=== PATIENT | male | born 1995 | race African-American/Black ===

== ENCOUNTER 2017-01-15 22:18 | Emergency (ER) | payer MEDICAID ==
[2017-01-16] MEDS ORDERED: LIDOCAINE 2% JELLY 30 ML TUBE TOP ONE (00:41)
--- NOTE | 2017-01-16 00:43 | ER Document Report ---
ED General - General Chief Complaint: Hemorrhoids Stated Complaint: POSSIBLE HEMOROIDS Time Seen by Provider: 01/15/17 23:18 Notes: Patient is a 21-year-old male without past medical history who presents with concerns of external rectal hemorrhoids. Patient states that this hemorrhoid is been present for the past 3-4 days and has gotten progressively more painful. States he has been trying docusate suppositories without improvement of the pain. No suggest recalling strain to have a bowel movement. Does describe the pain to the area as a dull, constant, aching pain. Worsened by standing and walking. He has a history of hemorrhoids in the past. He has not seen his primary care doctor regarding today's concerns. TRAVEL OUTSIDE OF THE [place] IN LAST 30 DAYS: No - Related Data Allergies/Adverse Reactions: No Known Allergies Allergy (Verified 02/13/14 22:06) Past Medical History - General Information source: Patient - Social History Smoking Status: Never Smoker Frequency of alcohol use: None Drug Abuse: None Lives with: Family Family History: Reviewed & Not Pertinent Patient has suicidal ideation: No Patient has homicidal ideation: No Renal/ Medical History: Denies: Hx Peritoneal Dialysis - Immunizations Immunizations up to date: Yes Hx Diphtheria, Pertussis, Tetanus Vaccination: Yes Review of Systems - Review of Systems Notes: Constitutional: Negative for fever. HENT: Negative for sore throat. Eyes: Negative for visual changes. Cardiovascular: Negative for chest pain. Respiratory: Negative for shortness of breath. Gastrointestinal: Positive for rectal pain Genitourinary: Negative for dysuria. Musculoskeletal: Negative for back pain. Skin: Negative for rash. Neurological: Negative for headaches, weakness or numbness. 10 point ROS negative except as marked above and in HPI. Physical Exam - Vital signs Vitals: Temp Pulse Resp BP Pulse Ox 98.3 F 75 16 122/64 98 01/15/17 22:45 01/15/17 22:45 01/15/17 22:45 01/15/17 22:45 01/15/17 22:45 Interpretation: Normal Notes: PHYSICAL EXAMINATION: GENERAL: Well-appearing, well-nourished and in no acute distress. HEAD: Atraumatic, normocephalic. EYES: Pupils equal round and reactive to light, extraocular movements intact, sclera anicteric, conjunctiva are normal. ENT: nares patent, oropharynx clear without exudates. Moist mucous membranes. NECK: Normal range of motion, supple without lymphadenopathy LUNGS: Breath sounds clear to auscultation bilaterally and equal. No wheezes rales or rhonchi. HEART: Regular rate and rhythm without murmurs ABDOMEN: Soft, nontender, normoactive bowel sounds. No guarding, no rebound. No masses appreciated. Rectal: A single, nonthrombosed external hemorrhoid is present EXTREMITIES: Normal range of motion, no pitting or edema. No cyanosis. NEUROLOGICAL: No focal neurological deficits. Moves all extremities spontaneously and on command. PSYCH: Normal mood, normal affect. SKIN: Warm, Dry, normal turgor, no rashes or lesions noted. Course - Re-evaluation Re-evalutation: 01/16/17 00:41 Presentation is most consistent with uncomplicated external hemorrhoids. Patient's abdominal exam is otherwise benign. I do not suspect a more significant lower GI bleed or upper GI bleed based on history, vitals, normal hemoglobin, and patient's overall well appearance. The patient will be discharged home on conservative treatment recommendations as well as recommendations for close outpatient follow-up. Return precautions have been reviewed. - Vital Signs Vital signs: Temp Pulse Resp BP Pulse Ox 98.3 F 75 16 122/64 98 01/15/17 22:45 01/15/17 22:45 01/15/17 22:45 01/15/17 22:45 01/15/17 22:45 Discharge - Discharge Clinical Impression: External hemorrhoids Condition: Good Disposition: HOME, SELF-CARE Additional Instructions: You were seen today for hemorrhoids. The best treatment is to avoid straining while having bowel moments, avoiding heavy lifting, or any other activity that causes you to bear down forcefully. You need to make sure that your stools are soft and should start taking Docusate 200mg in the morning and at night until your stools are very soft and you can have a bowel movement without any straining. You can also soak in warm water, apply topical hemorrhoid cream that can be purchased at the store, and take tylenol or ibuprofen per box instructions as needed for pain. Please follow-up with your primary doctor. Return if you begin to have persistent bleeding, worsening pain, abdominal pain , fever >101, or any other symptoms that are concerning to you. Forms: Return to Work
[2017-01-16] MEDS ORDERED: LIDOCAINE 2% JELLY 5 ML TUBE ONE (01:16)
[2017-01-16 03:07] VITALS: BP 124/82
== END 2017-01-16 01:15 | disposition home or self-care (01) ==
LOC: ER 22:18
DX: K64.4 Residual hemorrhoidal skin tags (principal)
CPT/HCPCS: 99282

== ENCOUNTER 2017-08-27 17:47 | Emergency (ER) | payer MEDICAID, OTHER ==
[2017-08-27] MEDS ORDERED: IBUPROFEN 800 MG TABLET PO ONE (19:18)
--- NOTE | 2017-08-27 19:19 | ER Document Report ---
HPI - HPI Patient complains to provider of: Right hand injury Onset: This afternoon Onset/Duration: Sudden Quality of pain: Achy Pain Level: 5 Context: Patient states that he was working on a roof and fell off of the roof injuring his right hand. Patient complains of pain over right fifth metacarpal and into the right lateral wrist area. Patient is right-hand dominant. Patient reports abrasions to the right hand. Tetanus immunizations currently up-to-date. Patient denies any head injury, loss of consciousness, chest neck or back pain. Associated Symptoms: Other - Right hand injury Exacerbated by: Movement Relieved by: Denies Similar symptoms previously: No Recently seen / treated by doctor: No - ROS ROS below otherwise negative: Yes Systems Reviewed and Negative: Yes All other systems reviewed and negative - NEURO Neurology: DENIES: Headache - CARDIOVASCULAR Cardiovascular: DENIES: Chest pain - RESPIRATORY Respiratory: DENIES: Trouble Breathing - GASTROINTESTINAL Gastrointestinal: DENIES: Abdominal Pain, Nausea, Patient vomiting - MUSCULOSKELETAL Musculoskeletal: REPORTS: Extremity pain. DENIES: Back Pain - DERM Skin Color: Normal Skin Problems: Abrasion Past Medical History - General Information source: Patient - Social History Smoking Status: Never Smoker Frequency of alcohol use: None Drug Abuse: None Occupation: food service utility worker Lives with: Family Family History: Reviewed & Not Pertinent - Medical History Medical History: Negative Renal/ Medical History: Denies: Hx Peritoneal Dialysis Surgical Hx: Negative - Immunizations Immunizations up to date: Yes Hx Diphtheria, Pertussis, Tetanus Vaccination: Yes Vertical Provider Document - CONSTITUTIONAL Agree With Documented VS: Yes Exam Limitations: No Limitations General Appearance: WD/WN, No Apparent Distress - INFECTION CONTROL TRAVEL OUTSIDE OF THE [place] IN LAST 30 DAYS: No - HEENT HEENT: Atraumatic, Normocephalic - NECK Neck: Normal Inspection - RESPIRATORY Respiratory: Breath Sounds Normal, No Respiratory Distress O2 Sat by Pulse Oximetry: 99 - CARDIOVASCULAR Cardiovascular: Regular Rate, Regular Rhythm Pulses: Normal: Radial - MUSCULOSKELETAL/EXTREMETIES Musculoskeletal/Extremeties: MAEW, Tender - Right hand tenderness over right fifth metacarpal, right wrist tenderness to ulnar aspect of right wrist, no ecchymosis edema or deformity, No Edema. negative: Eccymosis - NEURO Level of Consciousness: Awake, Alert, Appropriate Motor/Sensory: No Motor Deficit - DERM Integumentary: Warm, Dry Notes: Abrasions to dorsal aspect of right hand Course - Vital Signs Vital signs: Temp Pulse Resp BP Pulse Ox 98.8 F 82 18 107/72 99 08/27/17 18:22 08/27/17 18:22 08/27/17 18:22 08/27/17 18:22 08/27/17 18:22 - Diagnostic Test Radiology reviewed: Image reviewed, Reports reviewed Procedures - Immobilization Right Hand Pre-Proc Neuro Vasc Exam: Normal Immobilizer type: Cock-up Performed by: PCT Post-Proc Neuro Vasc Exam: Normal Alignment checked and good: Yes Discharge - Discharge Clinical Impression: Hand sprain Qualifiers: Encounter type: initial encounter Laterality: right Qualified Code(s): S63.91XA - Sprain of unspecified part of right wrist and hand, initial encounter Wrist sprain Qualifiers: Encounter type: initial encounter Laterality: right Qualified Code(s): S63.501A - Unspecified sprain of right wrist, initial encounter Condition: Stable Disposition: HOME, SELF-CARE Instructions: Ice & Elevation ([facility]), Sprain ([facility]), Wrist Sprain ([facility]), Temporary Splint ([facility]) Additional Instructions: Return immediately for any new or worsening symptoms Followup with your primary care provider, call tomorrow to make a followup appointment Prescriptions: Naproxen [Naprosyn 250 Nmg Tablet] 1 tab PO BID #14 tablet Forms: Return to Work Referrals: SONG SORIANO DO [Primary Care Provider] - Follow up as needed [facility] [Provider Group] - Follow up as needed
--- NOTE | 2017-08-27 19:31 | RADIOLOGY REPORT (SQ) ---
EXAM DESCRIPTION: HAND RIGHT 3 VIEWS; WRIST RIGHT 3 VIEWS COMPLETED DATE/TIME: 08/27/2017 7:12 pm REASON FOR STUDY: fell on roof, +wrist and hand pain COMPARISON: See below. FINDINGS: Three views right wrist: 2016 comparisons. Normal alignment. Normal bone density. Three views right hand: Soft tissue swelling distally along the 5th metacarpal. No radiopaque forei gn body or underlying fracture. No subluxation or dislocation evident. TECHNICAL DOCUMENTATION: JOB ID: [id number]
[2017-08-27] MEDS ORDERED: HYDROCODONE/ACETAMINOPHEN 5-325 MG (6 TAB/ER DISP) PO PRN (20:03)
[2017-08-27 20:32] VITALS: BP 106/70
== END 2017-08-27 20:31 | disposition home or self-care (01) ==
LOC: ER 17:47
DX: S63.91XA Sprain of unspecified part of right wrist and hand, initial encounter (principal); S63.501A Unspecified sprain of right wrist, initial encounter; W13.2XXA Fall from, out of or through roof, initial encounter
CPT/HCPCS: 99283; 73130; 73110; L3908

== ENCOUNTER 2017-09-27 17:42 | Emergency (ER) | payer SELFPAY ==
[2017-09-27 17:56] VITALS: BP 123/65
--- NOTE | 2017-09-27 18:24 | RADIOLOGY REPORT (SQ) ---
EXAM DESCRIPTION: HAND RIGHT 3 VIEWS COMPLETED DATE/TIME: 09/27/2017 6:14 pm REASON FOR STUDY: finger pain COMPARISON: 08/27/2017 EXAM PARAMETERS: NUMBER OF VIEWS: Three views. TECHNIQUE: AP, lateral and oblique radiographic images acquired of the right hand. LIMITATIONS: None. FINDINGS: MINERALIZATION: Normal. BONES: No acute fracture or dislocation. No worrisome bone lesions. JOINTS: No effusions. SOFT TISSUES: There is soft tissue swelling over the 5th metacarpophalangeal joint. There are no ass ociated calcifications or joint erosions. OTHER: No other significant finding. IMPRESSION: Soft tissue swelling as described. Is there any clinical evidence of gout? TECHNICAL DOCUMENTATION: JOB ID: [id number]- All Rights Reserved Reading location - IP/workstation name: [email or web address]
[2017-09-27] MEDS ORDERED: IBUPROFEN 600 MG TABLET PO ONE (18:43)
--- NOTE | 2017-09-27 18:44 | ER Document Report ---
ED Hand/Wrist Injury - General Chief Complaint: Finger Injury Stated Complaint: FINGER INJURY Time Seen by Provider: 09/27/17 18:24 Mode of Arrival: Ambulatory Information source: Patient Notes: 20-year-old male presents to ED for complaint of pain to the right fifth finger. He states he punched a wall yesterday. He states he fell off a roof on 08/27/17. TRAVEL OUTSIDE OF THE [place] IN LAST 30 DAYS: No - HPI Injury to: Small finger Onset: Yesterday Where: Home, Indoors Timing: Still present Quality of pain: Achy, Throbbing Severity: Moderate Pain Level: 4 Context: Other - Punched a wall - Related Data Allergies/Adverse Reactions: No Known Allergies Allergy (Verified 09/27/17 17:44) Past Medical History - General Information source: Patient - Social History Smoking Status: Current Every Day Smoker Cigarette use (# per day): Yes - 2 cigarettes a day Chew tobacco use (# tins/day): No Smoking Education Provided: Yes - 4 minutes Frequency of alcohol use: None Drug Abuse: None 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 denies: Arthritis, CAD, COPD, CVA, DM , Hyperlipidemia, Hypertension, Malignancy, Thyroid Disfunction Patient has suicidal ideation: No Patient has homicidal ideation: No - Past Medical History Cardiac Medical History: Reports: None Pulmonary Medical History: Reports: None EENT Medical History: Reports: None Neurological Medical History: Reports: None Endocrine Medical History: Reports: None Renal/ Medical History: Reports: None Malignancy Medical History: Reports None GI Medical History: Reports: None Musculoskeltal Medical History: Reports Hx Musculoskeletal Trauma Skin Medical History: Reports None Psychiatric Medical History: Reports: None Traumatic Medical History: Reports: None Infectious Medical History: Reports: None Surgical Hx: Negative Past Surgical History: Reports: None - Immunizations Immunizations up to date: Yes Hx Diphtheria, Pertussis, Tetanus Vaccination: Yes Review of Systems - Review of Systems Constitutional: No symptoms reported EENT: No symptoms reported Cardiovascular: No symptoms reported Respiratory: No symptoms reported Gastrointestinal: No symptoms reported Genitourinary: No symptoms reported Male Genitourinary: No symptoms reported Musculoskeletal: Other - Right fifth finger pain swelling Skin: No symptoms reported Hematologic/Lymphatic: No symptoms reported Neurological/Psychological: No symptoms reported -: Yes All other systems reviewed and negative Physical Exam - Vital signs Vitals: Temp Pulse Resp BP Pulse Ox 98.7 F 74 14 123/65 99 09/27/17 17:55 09/27/17 17:55 09/27/17 17:55 09/27/17 17:55 09/27/17 17:55 Interpretation: Normal - General General appearance: Appears well, Alert - HEENT Head: Normocephalic, Atraumatic Eyes: Normal Pupils: PERRL - Respiratory Respiratory status: No respiratory distress Chest status: Nontender Breath sounds: Normal Chest palpation: Normal - Cardiovascular Rhythm: Regular Heart sounds: Normal auscultation Murmur: No - Abdominal Inspection: Normal Distension: No distension Bowel sounds: Normal Tenderness: Nontender Organomegaly: No organomegaly - Back Back: Normal, Nontender - Extremities General upper extremity: Normal color, Normal temperature General lower extremity: Normal inspection, Nontender, Normal color, Normal ROM , Normal temperature, Normal weight bearing. No: Mikhail's sign Hand: Tender, Ecchymosis, No evidence of human bite, No evidence of FB - Right fifth finger, Swelling. No: Abrasion, Deformity, Dislocation, Instability, Laceration - Neurological Neuro grossly intact: Yes Cognition: Normal Orientation: AAOx4 [place] Coma Scale Eye Opening: Spontaneous [place] Coma Scale Verbal: Oriented [place] Coma Scale Motor: Obeys Commands Aby Coma Scale Total: 15 Speech: Normal Motor strength normal: LUE, RUE, LLE, RLE Sensory: Normal - Psychological Associated symptoms: Normal affect, Normal mood - Skin Skin Temperature: Warm Skin Moisture: Dry Skin Color: Normal Course - Vital Signs Vital signs: Temp Pulse Resp BP Pulse Ox 98.7 F 74 14 123/65 99 09/27/17 17:55 09/27/17 17:55 09/27/17 17:55 09/27/17 17:55 09/27/17 17:55 - Diagnostic Test Radiology reviewed: Image reviewed, Reports reviewed Discharge - Discharge Clinical Impression: Contusion of right little finger with damage to nail Qualifiers: Encounter type: initial encounter Qualified Code(s): S60.151A - Contusion of right little finger with damage to nail, initial encounter Condition: Stable Disposition: HOME, SELF-CARE Instructions: Family Physicians / Practices Additional Instructions: CONTUSION: Your injury has resulted in a contusion -- a crushing of the deep tissues. No injury to important structures was detected during the physician's exam. Contusions vary in the amount of pain they cause, and in the length of time required for healing. Typically, the area will become bruised, and will remain painful to touch for two or three weeks. However, most patients are back to working and playing within a few days. After the initial period of rest and cold-packs, your symptoms (together with the doctor's recommendations) will determine how rapidly you can get back to full activity. Usually this means "do what feels okay, but don't do things that hurt." If re-examination was recommended, it's important to follow up as instructed. Call the doctor or return any time if pain increases, if swelling becomes severe, if you develop numbness or weakness in an injured extremity, or if any other alarming symptoms occur. USE OF TYLENOL (ACETAMINOPHEN): Acetaminophen may be taken for pain relief or fever control. It's much safer than aspirin, offering a wider range of "safe" dosages. It is safe during . Some brand names are Tylenol, Panadol, Datril, Anacin 3, Tempra, and Liquiprin. Acetaminophen can be repeated every four hours. The following are maximum recommended dosages: WEIGHT Dose Drops Elixir Chewable( 80mg) (LBS.) drprs=droppers tsp=teaspoon 6 40 mg 0.4 ml (1/2) 6-11 80 mg 0.8 ml (full) tsp 1 tab 12-16 120 mg 1 1/2 drprs 3/4 tsp 1 1/2 tabs 17-23 160 mg 2 drprs 1 tsp 2 tabs 24-30 240 mg 3 drprs 1 1/2 tsp 3 tabs 30-35 320 mg 2 tsp 4 tabs 36-41 360 mg 2 1/4 tsp 4 1/2 tabs 42-47 400 mg 2 1/2 tsp 5 tabs 48-53 480 mg 3 tsp 6 tabs 54-59 520 mg 3 1/4 tsp 6 1/2 tabs 60-64 560 mg 3 1/2 tsp 7 tabs 65-70 600 mg 3 3/4 tsp 7 1/2 tabs 71-76 640 mg 4 tsp 8 tabs 77-82 720 mg 4 1/2 tsp 9 tabs 83-88 800 mg 5 tsp 10 tabs >89 pounds or adults 650 mg to 900 mg Acetaminophen can be repeated every four hours. Maximum dose not to exceed 4000 mg a day. These maximum recommended dosages are slightly higher than the dosages written on the product container, but these dosages are very safe and below the toxic dosage for acetaminophen. ICE & ELEVATION: Apply ice packs frequently against the painful area. Many different schedules are recommended, such as "20 minutes on, 20 minutes off" or "one hour ice, two hours rest." If you need to work, you may need to go longer between ice treatments. You should plan to have the area ice packed AT LEAST one- fourth of the time. The ice should be applied over the wrap, tape, or splint, or over a layer of cloth -- not directly against the skin. Some ice bags have a built-in cloth and can be put directly on the skin. Your injured part should be elevated as much as possible over the next 48 hours. Try to keep the injury above the level of the heart. Avoid use of the injured area. Elevation and rest will decrease the swelling. USE OF [id number] IBUPROFEN: Ibuprofen (Advil, Nuprin, Medipren, Motrin IB) is a medication for fever and pain control. In addition, it has anti- inflammatory effects which may be beneficial, especially in the treatment of injuries. It's best to take ibuprofen with food. Persons with ulcer disease or allergy to aspirin should notify their physician of this before taking ibuprofen. Ibuprofen can be given every four to six hours, for a total of four doses daily. Age Pain or fever dose Antiinflammatory dose 6-8 yr 200 mg (1 tab) 200 mg (1 tab) 9-11 yr 200 mg (1 tab) 200-400 mg (1-2 tab) 11-14 yr 200-400 mg (1-2 tab) 400 mg (2 tab) 15-adult 400 mg (2 tab) 600 mg (3 tab) FOLLOW-UP CARE: If you have been referred to a physician for follow-up care, call the physician s office for an appointment as you were instructed or within the next two days. If you experience worsening or a significant change in your symptoms, notify the physician immediately or return to the Emergency Department at any time for re-evaluation. Forms: Smoking Cessation Education, Return to Work Referrals: MANPREET LAMB, [ACTIVE STAFF] - Follow up as needed
== END 2017-09-27 18:52 | disposition home or self-care (01) ==
LOC: ER 17:42
DX: S60.151A Contusion of right little finger with damage to nail, initial encounter (principal); F17.210 Nicotine dependence, cigarettes, uncomplicated; W22.09XA Striking against other stationary object, initial encounter; Y92.009 Unspecified place in unspecified non-institutional (private) residence as the place of occurrence of the external cause
CPT/HCPCS: 99283; 99406